=== PATIENT | female | born 1955 | race Caucasian/White ===

== ENCOUNTER 2018-09-20 04:20 | Inpatient (IN) | payer BC ==
[2018-09-20] MEDS ORDERED: Ondansetron 4 MG/2 ML SDV IVPUSH ONE (04:48)
[2018-09-20] MEDS ORDERED: HYDROmorphone 0.5 MG/0.5 ML Syringe IVPUSH ONE ×3 (04:48→08:29)
--- NOTE | 2018-09-20 04:48 | EDM.PDOC ---
<Akash Granados - Last Filed: 09/20/18 04:43> ED HPI GENERAL MEDICAL PROBLEM - General Chief Complaint: Abdominal Pain Stated Complaint: RIGHT ABDOMINAL PAIN, BACK PAIN Time Seen by Provider: 09/20/18 04:30 Source of Information: Reports: Patient, Family History Limitations: Reports: No Limitations - History of Present Illness INITIAL COMMENTS - FREE TEXT/NARRATIVE: 63-year-old female, usually healthy, developed upper abdominal pain one hour after eating supper last night. The pain started around 10 PM. It's mostly located in the right upper quadrant and radiates to her back. She is nauseous but no vomiting. Fairly uncomfortable from pain. Had a normal bowel movement overnight as well. No shortness of breath or cough, denies fever or chills. No rash over the painful area. Her mother had her gallbladder removed. Onset: Sudden Duration: Hour(s): (7 hours ago) Location: Reports: Abdomen (right upper quadrant) Associated Symptoms: Reports: Nausea/Vomiting (Nausea but no vomiting). 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: Musculoskeletal History: Reports: Arthritis - Infectious Disease History Infectious Disease History: Reports: Chicken Pox, Influenza - Past Surgical History GI Surgical History: Reports: Appendectomy, Colonoscopy, Polypectomy Social & Family History - Tobacco Use Smoking Status *Q: Never Smoker - Caffeine Use Caffeine Use: Reports: Coffee - Alcohol Use Days Per Week of Alcohol Use: 2 Number of Drinks Per Day: 4 Total Drinks Per Week: 8 Date of Last Drink: 09/19/18 - Recreational Drug Use Recreational Drug Use: No ED ROS GENERAL - Review of Systems Review Of Systems: See Below Constitutional: Reports: Malaise. Denies: Fever, Chills HEENT: Reports: No Symptoms Respiratory: Reports: No Symptoms Cardiovascular: Reports: No Symptoms GI/Abdominal: Reports: Abdominal Pain, Nausea. Denies: Constipation, Diarrhea, Vomiting : Reports: No Symptoms Skin: Reports: No Symptoms Neurological: Reports: No Symptoms Psychiatric: Reports: No Symptoms ED EXAM, GI/ABD - Physical Exam Exam: See Below Exam Limited By: No Limitations General Appearance: Alert, Mild Distress Eyes: Bilateral: Normal Appearance (No jaundice) Throat/Mouth: Normal Inspection Head: Atraumatic Respiratory/Chest: No Respiratory Distress, Lungs Clear Cardiovascular: Regular Rate, Rhythm, Systolic Murmur (Very faint systolic murmur) GI/Abdominal Exam: Soft, Tender (Tender in the right upper quadrant with positive Figueroa sign) Extremities: Normal Inspection Neurological: Alert, Oriented Psychiatric: Anxious Skin Exam: Warm, Dry Course - Vital Signs Last Recorded V/S: Last Vital Signs Temp 36.0 C 09/20/18 06:04 Pulse 83 09/20/18 06:04 Resp 16 09/20/18 06:04 BP 144/85 H 09/20/18 06:04 Pulse Ox 94 L 09/20/18 06:04 - Orders/Labs/Meds Orders: Active Orders 24 hr Category Date Time Status Abdomen Pelvis w Cont [CT] Stat Exams 09/20/18 08:27 Taken Iopamidol [Isovue-300 (61%)] Med 09/20/18 08:33 Active 100 ml IV . DIRECTED PRN Sodium Chloride 0.9% [Normal Saline] 1,000 ml Med 09/20/18 05:00 Active IV ASDIRECTED Sodium Chloride 0.9% [Normal Saline] 78 ml Med 09/20/18 08:45 Active IV ASDIRECTED Medication Orders Sodium Chloride (Normal Saline) 1,000 mls @ 500 mls/hr IV ASDIRECTED KENNEY Last Admin: 09/20/18 05:02 Dose: 500 mls/hr Sodium Chloride (Normal Saline) 78 mls @ 3.4 mls/sec IV ASDIRECTED KENNEY Last Admin: 09/20/18 08:47 Dose: 3.4 mls/sec Iopamidol (Isovue-300 (61%)) 100 ml IV . DIRECTED PRN PRN Reason: RADIOLOGY EXAM Stop: 09/21/18 08:34 Last Admin: 09/20/18 08:48 Dose: 100 ml Labs: Laboratory Tests 09/20/18 09/20/18 09/20/18 Range/Units 05:04 05:04 08:22 WBC 11.3 H (4.5-11.0) K/uL RBC 3.78 (3.30-5.50) M/uL Hgb 10.5 L (12.0-15.0) g/dL Hct 33.4 L (36.0-48.0) % MCV 88 (80-98) fL MCH 28 (27-31) pg MCHC 31 L (32-36) % Plt Count 275 (150-400) K/uL Neut % (Auto) 81 H (36-66) % Lymph % (Auto) 13 L (24-44) % Young % (Auto) 5 (2-6) % Eos % (Auto) 1 L (2-4) % Baso % (Auto) 0 (0-1) % Sodium 137 L (140-148) mmol/L Potassium 3.5 L (3.6-5.2) mmol/L Chloride 99 L (100-108) mmol/L Carbon Dioxide 27 (21-32) mmol/L Anion Gap 14.5 H (5.0-14.0) mmol/L BUN 15 (7-18) mg/dL Creatinine 0.9 (0.6-1.0) mg/dL Est Cr Clr Drug Dosing 52.93 mL/min Estimated GFR (MDRD) > 60 (>60) Glucose 125 H (74-106) mg/dL Calcium 8.8 (8.5-10.1) mg/dL Total Bilirubin 0.2 (0.2-1.0) mg/dL AST 19 (15-37) U/L ALT 20 (12-78) U/L Alkaline Phosphatase 144 H (46-116) U/L C-Reactive Protein 0.25 (0.0-0.3) mg/dL Total Protein 7.6 (6.4-8.2) g/dL Albumin 3.5 (3.4-5.0) g/dL Globulin 4.1 H (2.3-3.5) g/dL Albumin/Globulin Ratio 0.9 L (1.2-2.2) Amylase 46 (25-115) U/L Lipase 152 (73-393) U/L Meds: Medications Generic Name Dose Route Start Last Admin Trade Name Freq PRN Reason Stop Dose Admin Sodium Chloride 1,000 mls @ 500 mls/hr 09/20/18 05:00 09/20/18 05:02 Normal Saline IV 500 mls/hr ASDIRECTED KENNEY Administration Sodium Chloride 78 mls @ 3.4 mls/sec 09/20/18 08:45 09/20/18 08:47 Normal Saline IV 3.4 mls/sec ASDIRECTED KENNEY Administration Iopamidol 100 ml 09/20/18 08:33 09/20/18 08:48 Isovue-300 (61%) IV 09/21/18 08:34 100 ml . DIRECTED PRN Administration RADIOLOGY EXAM Discontinued Medications Generic Name Dose Route Start Last Admin Trade Name Freq PRN Reason Stop Dose Admin Hydromorphone HCl 0.5 mg 09/20/18 04:48 09/20/18 05:02 Dilaudid IVPUSH 09/20/18 04:49 0.5 mg ONETIME ONE Administration Hydromorphone HCl 0.5 mg 09/20/18 05:49 09/20/18 06:02 Dilaudid IVPUSH 09/20/18 05:50 0.5 mg ONETIME ONE Administration Hydromorphone HCl 0.5 mg 09/20/18 08:29 09/20/18 08:34 Dilaudid IVPUSH 09/20/18 08:30 0.5 mg ONETIME ONE Administration Ondansetron HCl 4 mg 09/20/18 04:48 09/20/18 05:02 Zofran IVPUSH 09/20/18 04:49 4 mg ONETIME ONE Administration Sodium Chloride 10 ml 09/20/18 08:33 09/20/18 08:47 Saline Flush FLUSH 09/20/18 08:34 10 ml ONETIME ONE Administration - Re-Assessments/Exams Free Text/Narrative Re-Assessment/Exam: 09/20/18 04:48 IV started, hydration started, patient given 0.5 mg of Dilaudid and 4 mg of IV Zofran. CBC, CMP, amylase and lipase obtained. Departure - Departure Disposition: Admitted As Inpatient 66 Clinical Impression: Cholelithiasis and acute cholecystitis without obstruction - Discharge Information Forms: ED Department Discharge Care Plan Goals: admit to [facility]all[facility] - My Orders Last 24 Hours: My Active Orders 09/20/18 08:27 Abdomen Pelvis w Cont [CT] Stat - Assessment/Plan Last 24 Hours: My Active Orders 09/20/18 08:27 Abdomen Pelvis w Cont [CT] Stat <Summer Penny - Last Filed: 09/20/18 09:23> Course - Re-Assessments/Exams Free Text/Narrative Re-Assessment/Exam: 09/20/18 09:12 Us revealed alot of stones. There is a questionable mass at the neck of the GB , A cat esposito of the abdoman was obtained. The cat scan looked like this was a sludge ball sitting at the neck of the GB, 09/20/18 09:21 Departure - Departure Time of Disposition: 09:22 Condition: Fair
[2018-09-20] MEDS ORDERED: Sodium Chloride 0.9% 1,000 ML IV SCH ×2 (05:00→09:30)
--- NOTE | 2018-09-20 08:14 | CRLUS ---
CLINICAL HISTORY: Right upper quadrant pain FINDINGS: The patient`s liver is of normal size and has uniform echogenicity. Multiple echogenic foci within the gallbladder which appears lobulated and appearance. Negative sonographic Figueroa sign. No pericholecystic fluid. Sonographic images demonstrate probable twinkling artifact rather than true blood flow. Right kidney measures 10.1 centimeters and appears unremarkable. Visualized portions of the pancreas appears unremarkable. IMPRESSION: 1. Multiple echogenic foci with lobulated appearance within the gallbladder. Findings likely reflect cholelithiasis and/or tumefactive sludge. There is probable twinkling artifact rather than true blood flow within the gallbladder. Consider surgical consultation. Dictated by Heike Barber MD @ Sep 20 2018 8:03AM Signed by Dr. Heike Barber @ Sep 20 2018 8:12AM
[2018-09-20] MEDS ORDERED: Sodium Chloride 0.9% 10 ML Syringe FLUSH ONE (08:33)
[2018-09-20] MEDS ORDERED: Iopamidol 612 MG/ML 100 ML Bottle IV PRN (08:33)
--- NOTE | 2018-09-20 10:14 | CT ---
Abdomen Pelvis w Cont CLINICAL HISTORY: Right upper quadrant pain COMPARISON: Current ultrasound. TECHNIQUE: Axial tomographic images are obtained from the dome of the diaphragm to the pubic symphysis without IV contrast enhancement. No oral contrast was used. Auto dosage reduction and iterative reconstruction techniques employed. FINDINGS: The lung bases are clear. The liver shows no mass. There is some mild intrahepatic ductal prominence. The gallbladder is mildly prominent. There are some internal densities. There are known gallstones. These are isodense. No obvious enhancement is identified within the gallbladder. The larger echogenic focus seen on ultrasound is likely tumefactive sludge as stated. There is a small cyst adjacent to the gallbladder fossa. Spleen has normal size and shape. The gallbladder shows no mass or inflammatory change. The adrenal glands are normal bilaterally. The kidneys are free of mass, stones or hydronephrosis. No suspicious retroperitoneal lymphadenopathy is identified. Abdominal pelvic fat planes and low pelvic side wade are well demarcated. Bladder has normal configuration. The appendix is not definitively identified. There is no evidence to suggest appendicitis. Impression: Patient has known gallstones documented on ultrasound. No gallbladder mass is identified. Mild gallbladder distention. There is some mild prominence of the intrahepatic biliary tree which is seen on prior study of 1999 and
[2018-09-20] MEDS ORDERED: Ondansetron 4 MG/2 ML SDV IVPUSH PRN (10:48)
[2018-09-20] MEDS ORDERED: Acetaminophen 650 MG Supp RECTAL PRN (11:01)
[2018-09-20] MEDS ORDERED: Naloxone 0.4 MG/ML SDV IV PRN (11:03)
[2018-09-20] MEDS ORDERED: HYDROmorphone/Normal Saline 15 MG/30 ML PCA IV PRN (11:03)
[2018-09-20] MEDS: Pantoprazole 40 MG Vial IV SCH (11:28)
[2018-09-20] MEDS: Ampicillin/Sulbactam Na 1.5 GM in Sodium Chloride 0.9% 50 ML IV SCH ×2 (11:38→17:26)
[2018-09-20] MEDS: Aztreonam/Dextrose-Water 1 GM in Premix Bag 1 BAG IV SCH ×2 (12:19→19:58)
[2018-09-20] MEDS: Dextrose 5%-Lactated Ringers 1,000 ML IV SCH (14:28)
--- NOTE | 2018-09-20 18:54 | PCM.HP ---
H&P History of Present Illness - General Date of Service: 09/20/18 Admit Problem/Dx: Admission Diagnosis/Problem Admission Diagnosis/Problem Cholelithiasis Source of Information: Patient History Limitations: Reports: No Limitations - History of Present Illness Initial Comments - Free Text/Narative: Radha states that she developed severe right upper quadrant abdominal pain that radiates to her right upper back. Pain started at 10:00 pm and she states she couldn't get any relief of pain so she came into the ED. No previous history of RUQ abdominal pain or gall bladder disease. associated with nausea. BMs have been normal States she ate popcorn and ice cream for supper last night because they had a late lunch. Onset of Symptoms: Reports: Sudden Symptom Onset Date: 09/19/18 Symptom Onset Time: 22:00 Duration of Symptoms: Reports: Hour(s): (12) Location: Reports: Abdomen (RUQ) Improves with: Reports: Medication Worsens with: Reports: None Context: Reports: Sick Contact Associated Symptoms: Reports: Other (nausea) Right Upper Abdominal Pain Score (Numeric/FACES): 3 - Related Data Allergies/Adverse Reactions: Allergies Allergy/AdvReac Type Severity Reaction Status Date / Time No Known Allergies Allergy Verified 09/20/18 04:29 Home Medications: Home Meds Cyclobenzaprine [Flexeril] 10 mg PO BEDTIME 09/20/18 [History] Venlafaxine HCl [Venlafaxine ER] 75 mg PO BEDTIME 09/20/18 [History] Past Medical History HEENT History: Reports: Impaired Vision Gastrointestinal History: Reports: Colon Polyp, GERD 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: Musculoskeletal History: Reports: Arthritis - Infectious Disease History Infectious Disease History: Reports: Chicken Pox, Influenza - Past Surgical History GI Surgical History: Reports: Appendectomy, Colonoscopy, Polypectomy Social & Family History - Tobacco Use Smoking Status *Q: Never Smoker - Caffeine Use Caffeine Use: Reports: Coffee - Alcohol Use Days Per Week of Alcohol Use: 2 Number of Drinks Per Day: 4 Total Drinks Per Week: 8 Date of Last Drink: 09/19/18 - Recreational Drug Use Recreational Drug Use: No H&P Review of Systems - Review of Systems: Review Of Systems: ROS reveals no pertinent complaints other than HPI. Exam - Exam Exam: See Below - Vital Signs Vital Signs: Last Vital Signs Temp 96.9 F 09/20/18 14:31 Pulse 84 09/20/18 14:31 Resp 16 09/20/18 14:31 BP 138/72 09/20/18 14:31 Pulse Ox 98 09/20/18 14:31 Weight: 163 lb 9.328 oz - Exam Quality Assessment: DVT Prophylaxis General: Alert, Oriented, Moderate Distress HEENT: PERRLA Cardiovascular: Regular Rhythm GI/Abdominal Exam: Other (tenderness in the right upper quadrant ) (Female) Exam: Deferred Rectal (Female) Exam: Deferred Back Exam: Full Range of Motion Extremities: Normal Inspection, Normal Range of Motion Neurological: Cranial Nerves Intact Neuro Extensive - Mental Status: Alert, Oriented x3 Neuro Extensive - Motor, Sensory, Reflexes: CN II-XII Intact, Normal Gait Psychiatric: Alert, Normal Affect - Patient Data Lab Results Last 24 hrs: Laboratory Results - last 24 hr 09/20/18 09/20/18 09/20/18 Range/Units 05:04 05:04 08:22 WBC 11.3 H (4.5-11.0) K/uL RBC 3.78 (3.30-5.50) M/uL Hgb 10.5 L (12.0-15.0) g/dL Hct 33.4 L (36.0-48.0) % MCV 88 (80-98) fL MCH 28 (27-31) pg MCHC 31 L (32-36) % Plt Count 275 (150-400) K/uL Neut % (Auto) 81 H (36-66) % Lymph % (Auto) 13 L (24-44) % Brown % (Auto) 5 (2-6) % Eos % (Auto) 1 L (2-4) % Baso % (Auto) 0 (0-1) % Sodium 137 L (140-148) mmol/L Potassium 3.5 L (3.6-5.2) mmol/L Chloride 99 L (100-108) mmol/L Carbon Dioxide 27 (21-32) mmol/L Anion Gap 14.5 H (5.0-14.0) mmol/L BUN 15 (7-18) mg/dL Creatinine 0.9 (0.6-1.0) mg/dL Est Cr Clr Drug Dosing 52.93 mL/min Estimated GFR (MDRD) > 60 (>60) Glucose 125 H (74-106) mg/dL Calcium 8.8 (8.5-10.1) mg/dL Total Bilirubin 0.2 (0.2-1.0) mg/dL AST 19 (15-37) U/L ALT 20 (12-78) U/L Alkaline Phosphatase 144 H (46-116) U/L C-Reactive Protein 0.25 (0.0-0.3) mg/dL Total Protein 7.6 (6.4-8.2) g/dL Albumin 3.5 (3.4-5.0) g/dL Globulin 4.1 H (2.3-3.5) g/dL Albumin/Globulin Ratio 0.9 L (1.2-2.2) Amylase 46 (25-115) U/L Lipase 152 (73-393) U/L Result Diagrams: 09/20/18 05:04 09/20/18 05:04 - Problem List (1) Cholelithiasis and acute cholecystitis without obstruction Status: Acute Current Visit: Yes Problem List Initiated/Reviewed/Updated: Yes Orders Last 24hrs: Active Orders 24 hr Category Date Time Status Admission Status [Patient Status] [ADT] Routine ADT 09/20/18 09:15 Active Admission Status [Patient Status] [ADT] Routine ADT 09/20/18 09:15 Active Incentive Spirometry [RT Incentive Spirometry] [RC] Care 09/20/18 10:30 Active Q1HWA Intake and Output [RC] QSHIFT Care 09/20/18 10:30 Active Oxygen Therapy [RC] ASDIRECTED Care 09/20/18 15:00 Active Up With Assistance [RC] ASDIRECTED Care 09/20/18 10:29 Active Vital Signs [RC] Q4H Care 09/20/18 10:29 Active NPO Now [Nothing per Oral Now Diet] [DIET] Diet 09/20/18 Lunch Active AMYLASE [CHEM] Routine Lab 09/21/18 04:00 Ordered CBC W/O DIFF,HEMOGRAM [HEME] Timed Lab 09/21/18 04:00 Ordered COMPREHENSIVE METABOLIC PN,CMP [CHEM] Timed Lab 09/21/18 04:00 Ordered LIPASE, SERUM Routine Lab 09/21/18 04:00 Ordered Acetaminophen [Tylenol] Med 09/20/18 11:00 Active 650 mg PO Q4H PRN Acetaminophen [Tylenol] Med 09/20/18 11:01 Active 650 mg RECTAL Q4H PRN Ampicillin/Sulbactam Na [Unasyn] 1.5 gm Med 09/20/18 11:00 Active Sodium Chloride 0.9% [Normal Saline] 50 ml IV Q6H Aztreonam/Dextrose-Water [Azactam in Dextrose,Iso- Med 09/20/18 11:30 Active Osmotic 1 GM/50 ML] 1 gm Premix Bag 1 bag IV Q8H Dextrose 5%-Lactated Ringers 1,000 ml Med 09/20/18 11:00 Active IV ASDIRECTED HYDROmorphone/Normal Saline [Dilaudid 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 15 MG in NS Med 09/20/18 11:03 Active 30 ML] 0 mg IV ASDIRECTED PRN Naloxone [Narcan] Med 09/20/18 11:03 Active 0.1 mg IV ASDIRECTED PRN Ondansetron [Zofran] Med 09/20/18 10:48 Active 4 mg IVPUSH Q4H PRN Pantoprazole [ProTONIX IV] Med 09/20/18 11:00 Active 40 mg IV Q24H SCD [Sequential Compression Device] [OM.PC] Routine Oth 09/20/18 10:30 Ordered Code Status [Resuscitation Status] Routine Resus Stat 09/20/18 10:28 Ordered Medication Orders Acetaminophen (Tylenol) 650 mg PO Q4H PRN PRN Reason: ANALGESIA/FEVER Acetaminophen (Tylenol) 650 mg RECTAL Q4H PRN PRN Reason: ANALGESIA/FEVER Hydromorphone HCl (Dilaudid Sap Business Objects Developer 15 Mg In Ns 30 Ml) 0 mg IV ASDIRECTED PRN; Protocol PRN Reason: 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 PAIN CONTROL Last Admin: 09/20/18 11:17 Dose: 15 mg Ampicillin Sodium/Sulbactam (Sodium 1.5 gm/ Sodium Chloride) 50 mls @ 100 mls/ hr IV Q6H [facility] Last Admin: 09/20/18 17:26 Dose: 100 mls/hr Admin: 09/20/18 11:38 Dose: 100 mls/hr Aztreonam/Dextrose 1 gm/ (Premix) 50 mls @ 100 mls/hr IV Q8H [facility] Last Admin: 09/20/18 12:19 Dose: 100 mls/hr Dextrose/Lactated Ringer's (Dextrose 5%-Lactated Ringers) 1,000 mls @ 125 mls/ hr IV ASDIRECTED [facility] Last Admin: 09/20/18 14:28 Dose: 125 mls/hr Naloxone HCl (Narcan) 0.1 mg IV ASDIRECTED PRN PRN Reason: decreased respiratory rate Ondansetron HCl (Zofran) 4 mg IVPUSH Q4H PRN PRN Reason: Nausea/Vomiting Pantoprazole Sodium (Protonix Iv) 40 mg IV Q24H [facility] Last Admin: 09/20/18 11:28 Dose: 40 mg Assessment/Plan Comment:: Acute Cholelithiasis and Cholelithiasis PLAN: ADMIT to [facility] Tracey VIZCAINO [place] Daniel Smith was consulted. Juliet Skelton
[2018-09-20] MEDS: Acetaminophen 325 MG Tab PO PRN (19:58)
[2018-09-20] MEDS ORDERED: Cyclobenzaprine 10 MG Tab PO SCH (21:00)
[2018-09-20] MEDS: Venlafaxine 75 MG Cap.ER PO SCH (21:17)
[2018-09-21] MEDS: Dextrose 5%-Lactated Ringers 1,000 ML IV SCH ×3 (00:19→18:10)
[2018-09-21] MEDS: Ampicillin/Sulbactam Na 1.5 GM in Sodium Chloride 0.9% 50 ML IV SCH ×3 (00:19→10:33)
[2018-09-21] MEDS: Aztreonam/Dextrose-Water 1 GM in Premix Bag 1 BAG IV SCH ×3 (02:58→19:14)
[2018-09-21] MEDS: Acetaminophen 325 MG Tab PO PRN (10:27)
[2018-09-21] MEDS ORDERED: fentaNYL 250 MCG/5 ML SDV ONE ×2 (11:04→13:59)
[2018-09-21] MEDS ORDERED: Glycopyrrolate 0.2 MG/ML 5 ML MDV ONE (11:05)
[2018-09-21] MEDS ORDERED: Propofol 200 MG/20 ML SDV ONE (11:05)
[2018-09-21] MEDS ORDERED: Ondansetron 4 MG/2 ML SDV ONE (11:05)
[2018-09-21] MEDS ORDERED: Neostigmine Methylsulfate 1 MG/ML 5 ML Syringe ONE (11:05)
[2018-09-21] MEDS ORDERED: Succinylcholine 200 MG/10 ML MDV ONE (11:05)
[2018-09-21] MEDS ORDERED: Rocuronium 50 MG/5 ML Vial ONE (11:05)
[2018-09-21] MEDS ORDERED: Dexamethasone 4 MG/ML SDV ONE (11:05)
[2018-09-21] MEDS ORDERED: Bupivacaine 0.5%/EPINEPHrine 1:200,000 50 ML MDV ONE (11:34)
[2018-09-21] MEDS: Pantoprazole 40 MG Vial IV SCH (11:41)
[2018-09-21] MEDS ORDERED: Ketamine 500 MG/5 ML MDV IV SCH (12:00)
[2018-09-21] MEDS ORDERED: Ropivacaine 37 ML, Dexamethasone 8 MG, EPINEPHrine 0.4 MG, Sodium Chloride 0.9% 40.6 ML NERVRT SCH ×4 (12:00)
[2018-09-21] MEDS ORDERED: Lactated Ringers 1,000 ML ONE (13:48)
[2018-09-21] MEDS ORDERED: diphenhydrAMINE 50 MG/ML SDV IVPUSH PRN (16:34)
[2018-09-21] MEDS ORDERED: diphenhydrAMINE 25 MG Cap PO PRN (16:36)
[2018-09-21] MEDS: Ampicillin/Sulbactam Na 3 GM in Sodium Chloride 0.9% 100 ML IV SCH ×2 (16:46→21:25)
[2018-09-21] MEDS ORDERED: Cyclobenzaprine 10 MG Tab PO PRN (17:00)
[2018-09-21] MEDS: Venlafaxine 75 MG Cap.ER PO SCH (21:25)
--- NOTE | 2018-09-21 23:23 | PN ---
DATE OF SERVICE: 09/21/2018 The patient has been afebrile with stable vital signs, looks very comfortable this morning major problems. Her amylase and lipase however remained normal. Bilirubin was 0.4. CT scan was obtained, which showed cholelithiasis and thickened gallbladder wall, but no signs of any mass. We will proceed with a laparoscopic cholecystectomy later today. Potential risks of the procedure were reviewed with the patient and and they wished to proceed. Rupert Niño MD /[id number]
[2018-09-22] MEDS: Dextrose 5%-Lactated Ringers 1,000 ML IV SCH (03:10)
[2018-09-22] MEDS: Aztreonam/Dextrose-Water 1 GM in Premix Bag 1 BAG IV SCH (03:10)
[2018-09-22] MEDS: Ampicillin/Sulbactam Na 3 GM in Sodium Chloride 0.9% 100 ML IV SCH (03:12)
[2018-09-22] MEDS: Acetaminophen/HYDROcodone 325-5 MG Tab PO PRN ×2 (04:07→09:33)
--- NOTE | 2018-09-22 16:54 | DISCH ---
ADMISSION DIAGNOSIS: Right upper quadrant abdominal pain. DISCHARGE DIAGNOSES: 1. Diagnostic laparoscopy with cholecystectomy. 2. Partial right hepatic lobectomy and excision of liver cyst. 3. Repair of incarcerated umbilical hernia for acute cholecystitis and cholelithiasis. Cyst right hepatic lobe and incarcerated umbilical hernia. Date of surgery is 09/21/2018. Surgeon, Rupert Niño MD. HISTORY: Radha Amos is a pleasant 63-year-old female, who presented to the emergency room [facility] with severe mid epigastric abdominal pain radiating into the right. After preoperative evaluation and discussion of possible risks and possible complications, she wished to proceed with surgical procedure. HOSPITAL COURSE: Radha was admitted from the emergency room on 09/20/2018. She had her surgery on 09/21/2018. She had no operative complications. On postoperative day #1, she was able to be discharged to home without any complications. Her pain was well managed. Her activity was good. Vital signs were stable. PHYSICAL EXAMINATION: GENERAL: Radha Amos is a 63-year-old female. VITAL SIGNS: Height is 5 feet 2.99 inches. Weight is 163 pounds. BMI is 29. TPR is 98.1, 84, 16, blood pressure 128/63. HEENT: Negative. NECK: Supple. HEART: Regular rate and rhythm. LUNGS: Clear. ABDOMEN: Dressings dry and intact. Abdominal binder is on. CRISTI drain was removed. 4x4 over CRISTI drain site. EXTREMITIES: Without peripheral edema. DISPOSITION: Discharged to home. CONDITION: Stable and improving. FOLLOWUP: Followup appointment with Juliet Guallpa PA-C, on 09/27/2018 at 9:00 a.m. MEDICATIONS: New prescriptions: Crowell 5/325 mg one tablet every 6 hours p.r.n. pain #40. She is to resume her home medications: 1. Flexeril 10 mg at bedtime. 2. Venlafaxine 75 mg oral at bedtime. DISCHARGE DIET: Usual diet as tolerated; drink 8 to 10 glasses of water a day. ACTIVITY: Other activity as tolerated. No lifting greater than 10 pounds for 2 weeks. Other activity, walk at least 6 times daily inside your home. Driving, do not drive for 1 week and while on pain medication. Shower/bathing, may shower. Notify provider if any fever, increased pain, nausea, or vomiting. Keep site clean and dry. Wear abdominal binder for 2 weeks and then as tolerated. Special instruction is use incentive spirometer 10 times every hour while awake for 1 week.
--- NOTE | 2018-09-27 15:26 | OR ---
DATE OF PROCEDURE: 09/21/2018 PREOPERATIVE DIAGNOSIS: Subacute and acute cholecystitis and cholelithiasis. POSTOPERATIVE DIAGNOSES: 1. Acute cholecystitis and cholelithiasis. 2. Potentially infected right hepatic cyst. 3. Incarcerated umbilical hernia. OPERATIVE PROCEDURES: Diagnostic laparoscopy with: 1. Cholecystectomy (14762). 2. Partial right hepatic lobectomy for excision of potentially infected liver cyst (22742). 3. Repair of incarcerated umbilical hernia (41898). ANESTHESIA: General. BORDER MEASURER: KARLEY Hathaway. INDICATION FOR PROCEDURE: This is a 63-year-old female admitted yesterday with a picture of acute or subacute cholecystitis and cholelithiasis. Plan is to proceed with a laparoscopic cholecystectomy. Potential risks including bleeding, infection, injury to the underlying viscera, potential migration of stones in the common bile duct requiring additional procedures were gone over, and the patient wishes to proceed. DETAILS OF PROCEDURE: The patient was taken to the operating room and placed in a supine position. After general endotracheal anesthesia was induced, the abdomen was prepped and draped. A transverse incision was made in the epigastrium and the peritoneal cavity entered under direct vision with an Optiview trocar inflated to 15 mmHg pressure of CO2. The laparoscope was reinserted. No underlying trocar insertion site injuries were seen. At this point, bilateral subcostal transversus abdominis plane blocks were then placed, and attention was taken to the area of the umbilicus. The patient was noted to have a small umbilical hernia, which contained some incarcerated preperitoneal fat. An incision was then made just inferior to the umbilicus and a 12 mm trocar then placed through the level of hernia, pushing the preperitoneal fat into the peritoneal cavity. This hernia was subsequently repaired at the conclusion of the procedure. The upper abdomen was examined. The patient was noted to have markedly edematous and baer- appearing gallbladder consistent with an acute cholecystitis. Interestingly, posterior to this was a liver cyst measuring around 5 to 6 cm. This, rather than the normal greenish translucent appearing cyst, was thickened and white on its surface, indicating possible infectious component, given this was overlaid by the now infected gallbladder or remote possibility of being neoplastic. Given this, the decision was made to proceed with that liver cyst, along with cholecystectomy. The gallbladder was then retracted anterolaterally. Dissection began on the gallbladder neck with Harmonic scalpel, continued down to the gallbladder neck and cystic duct junction. Once that area was well delineated, the cystic duct was noted to be quite thickened and edematous, and it was felt that clips may not be satisfactory in this area. Given this, the cystic duct/gallbladder neck junction was divided with a THAO ponce load. The cystic artery was then clipped 3 times proximally, once distally, and divided with Harmonic scalpel. The gallbladder was then dissected off the gallbladder bed using Harmonic scalpel and delivered through the epigastric trocar site. It contained multiple yellowish stones. The area of the hepatic cyst was then identified. This was then excised with the Harmonic scalpel, removing some of the liver around the cyst, to allow the cyst to be removed in its entirety. Once this portion of the liver was excised, this was placed into a specimen retrieval bag and brought out through the epigastric trocar site. At this point, hemostasis appeared to be satisfactory in all areas and the bile duct reported as satisfactory. Jose De Jesus-Bland drain was taken out through the right lateral trocar site and placed into the area of the gallbladder bed and adjacent liver resection. The scope was then brought back up to the epigastric site, and then using laparoscopic suture passer, the umbilical hernia was closed with several 0 Vicryl sutures. These were placed such that the closure would be with a transverse orientation. Upon removal of the gastroscope, the epigastric site was then also closed with 0 Vicryl stitch at the fascia level and the skin at each incision with 4-0 Vicryl skin stitch. The patient was taken to the recovery room in satisfactory condition. There were no evident complications. Rupert Niño MD /[id number]
== END 2018-09-22 09:48 | disposition home or self-care (01) | DRG 260 ==
LOC: JP.ED 04:20 → JP.MS 09:15
PROVIDERS: ADMIT Surgery; ATTEND Physician Assistant Medical
PROC: 0FB14ZZ Excision of Right Lobe Liver, Percutaneous Endoscopic Approach (ICD-10-PCS; principal; 2018-09-21)
PROC: 0WQF4ZZ Repair Abdominal Wall, Percutaneous Endoscopic Approach (ICD-10-PCS; principal; 2018-09-21)
PROC: 0FT44ZZ Resection of Gallbladder, Percutaneous Endoscopic Approach (ICD-10-PCS; principal; 2018-09-21)
DX: K80.00 Calculus of gallbladder with acute cholecystitis without obstruction (principal); K42.0 Umbilical hernia with obstruction, without gangrene; K76.89 Other specified diseases of liver; K21.9 Gastro-esophageal reflux disease without esophagitis; H54.7 Unspecified visual loss; M19.90 Unspecified osteoarthritis, unspecified site; Z79.899 Other long term (current) drug therapy
CPT/HCPCS: 36415; 74177; 74177-26; 76705; 80053; 82150; 82247; 83690; 84075; 85025; 85027; 86140; 94762; 96361; 96374; 96375; 96376; 99285-25; A9270-GY; C9113; J0171; J0287; J0295; J0330; J1100; J1170; J1200; J2405; J2704; J2710; J2795; J3010; J3490; J7030; J7042; J7050; J7120; Q9967

== ENCOUNTER 2021-05-20 07:25 | Day surgery (SDC) | payer MEDICARE, OTHER ==
[2021-05-20] MEDS: Dextrose 5%-Lactated Ringers 1,000 ML IV SCH (08:05)
[2021-05-20] MEDS ORDERED: Propofol 200 MG/20 ML SDV ONE (09:46)
[2021-05-20] MEDS ORDERED: fentaNYL 100 MCG/2 ML SDV ONE (09:46)
[2021-05-20] MEDS ORDERED: Midazolam 1 MG/ML 2 ML SDV ONE (09:46)
[2021-05-20] MEDS: Glycopyrrolate 0.2 MG/ML 2 ML SDV IVPUSH ONE (09:59)
--- NOTE | 2021-05-23 14:40 | OR ---
DATE OF PROCEDURE: 05/20/2021 SURGEON: Rupert Niño MD PREOPERATIVE DIAGNOSES: 1. History of gastroesophageal reflux disease. 2. History of colon polyps. POSTOPERATIVE DIAGNOSES: 1. History of gastroesophageal reflux disease with upper endoscopy showing: a. 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 b. Mild antral gastritis. 2. History of colon polyps with present colonoscopy showing left colonic diverticulosis with no recurrent colonic polyps. OPERATIVE PROCEDURE: 1. Esophagogastroduodenoscopy with: a. Biopsies of esophagogastric junction for histologic evaluation. b. Biopsies of antrum for CLOtest. 2. Flexible colonoscopy. ANESTHESIA: IV sedation. INDICATION FOR PROCEDURE: A 66-year-old female presenting for evaluation of gastroesophageal reflux disease as well as for followup colonoscopy with personal history of colon polyps. Plan is to proceed with upper and lower endoscopy with biopsies and/or polypectomy as indicated. The patient is presently on omeprazole 20 mg a day but continues to have fairly significant reflux symptoms. Potential risks of procedure including bleeding and perforation were discussed, and the patient wishes to proceed. DETAILS OF PROCEDURE: The patient was taken to the operating room, placed in a left lateral decubitus position. IV sedation was administered, after which the upper GI endoscope was passed orally through the length of esophagus into the stomach with retroflexion view of the fundus, thereafter through the pyloric channel and into the proximal duodenum. Findings included some redness of hypopharynx and larynx suggestive of reflux disease. Otherwise, the upper esophageal sphincter and esophageal body were unremarkable. As one entered the distal esophagus, a small hiatal hernia was present with some low gastroesophageal reflux disease with there being excoriated edematous mucosa extending upward into the esophagus. 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 No erosions, ulcers, plaquing, or stricturing were identified. Within the stomach, there was some mild patchy redness within the antrum. Otherwise, the visualized portions of the pyloric channel and duodenum were unremarkable. At this point, biopsies were obtained from the antrum and sent for CLOtest for H pylori. Minimal bleeding from the biopsy sites was seen , and following this, multiple biopsies were obtained from the area of the distal esophagus and surrounding the areas of upward extension of the columnar mucosa. Minimal bleeding from the biopsy site was seen and the procedure was then concluded. Attention was then taken to the colonoscopy. Initial digital rectal exam was performed and was unremarkable. Colonoscope was passed down to the rectum with retroflexion revealing uncomplicated hemorrhoidal columns. Scope was eventually passed to the level of the cecum. The prep was good with only small amount of liquid stool was present. The patient had uncomplicated hemorrhoidal columns, and otherwise had some uncomplicated left colonic diverticulosis. Apart from that, there were no areas of colitis or polyps or other signs of neoplasia. The scope was then withdrawn and the above findings reconfirmed, and the procedure was then concluded. At this point, plan will be to have the patient move her omeprazole dose from 20 mg a day to twice daily, and we will see her back on 05/29/2021 to discuss treatment options for the reflux disease. From a colonoscopy standpoint, the next step colonoscopy should be in 5 years given her personal history of colon polyps. Rupert Niño MD Job #: [id number]
== END 2021-05-20 12:15 | disposition home or self-care (01) ==
LOC: JP.SDS 07:25
PROVIDERS: ATTEND Surgery
DX: Z12.11 Encounter for screening for malignant neoplasm of colon (principal); B96.81 Helicobacter pylori [H. pylori] as the cause of diseases classified elsewhere; K31.89 Other diseases of stomach and duodenum; K44.9 Diaphragmatic hernia without obstruction or gangrene; K29.60 Other gastritis without bleeding; K57.30 Diverticulosis of large intestine without perforation or abscess without bleeding; K64.9 Unspecified hemorrhoids; E78.5 Hyperlipidemia, unspecified
CPT/HCPCS: 87081; J2250; J2704; J3010; J3490; J7121